=== PATIENT | male | born 1985 | race Two or more races ===

== ENCOUNTER 2019-04-26 12:36 | Emergency (ER) | payer OTHER ==
[~2019-04-26] VITALS: Ht 182.9 cm; Wt 90.7 kg
== END 2019-04-26 14:29 | disposition home or self-care (01) ==
LOC: ER 12:36
DX: S30.0XXA Contusion of lower back and pelvis, initial encounter (principal); S50.01XA Contusion of right elbow, initial encounter; W18.39XA Other fall on same level, initial encounter; Y93.89 Activity, other specified; Y92.89 Other specified places as the place of occurrence of the external cause; Y99.8 Other external cause status